=== PATIENT | female | born 1970 | race Caucasian/White ===

== ENCOUNTER 2018-08-11 09:03 | Emergency (ER) | payer MEDICAID ==
[2018-08-11 09:32] VITALS: BP 120/72
[2018-08-11] MEDS ORDERED: Iohexol 300* (CONTRAST) 10 ML SDV IV ONE (10:13)
--- NOTE | 2018-08-11 11:38 | UC ---
Neck Pain HPI - HPI Summary HPI Summary: 1. mass right side of the neck x 6 months pt. noted the mass on her neck 6 months ago, has been getting bigger since, no pain , denies any other symptoms, no n/v/d/c, denies any sore throat, no dysphasia , no heat or cold intolerance no weight gain or loss, no fever, chill or weakness, denies any hair loss no chest pain , no palpitation 2. rash right side of neck: the rash is flat , red and itchy , no new soap / detergent , food or drinks - History of Current Complaint Chief Complaint: UCRash Stated Complaint: SKIN CONCERN Time Seen by Provider: 08/11/18 09:36 Hx Obtained From: Patient Hx Last Menstrual Period: 07/11/18 ?: No Onset/Duration Of Injury/Symptoms: Weeks - 24 Mechanism Of Injury: No Known Trauma Timing: Constant Onset/Duration: Gradual Onset, Lasting Weeks - 24 Severity: Moderate Pain Intensity: 0 Pain Scale Used: 0-10 Numeric Location: Discrete At: - right side of neck Aggravating Factors: Nothing Alleviating Factors: Nothing Associated Signs & Symptoms: Positive: Swelling - lump right side of neck - Risk Factors Meningitis Risk Factors: Negative - Allergies/Home Medications Allergies/Adverse Reactions: Allergies Allergy/AdvReac Type Severity Reaction Status Date / Time peppermint Allergy Severe Anaphylatic Verified 08/11/18 09:22 Shock Home Medications: Home Medications L.acidoph,Paracasei, B.lactis [Probiotic] 1 each PO DAILY 08/11/18 [History Confirmed 08/11/18] Lansoprazole 15 mg PO DAILY 08/11/18 [History Confirmed 08/11/18] PMH/Surg Hx/FS Hx/Imm Hx Previously Healthy: Yes - Surgical History Surgical History: Yes Surgery Procedure, Year, and Place: TUBAL LIGATION - Family History Known Family History: Negative: Hypertension, Diabetes - Social History Alcohol Use: Occasionally Substance Use Type: None Smoking Status (MU): Never Smoked Tobacco Review Of Systems Constitutional: Positive: Negative Skin: Positive: Negative Eyes: Positive: Negative ENT: Positive: Negative Respiratory: Positive: Negative Cardiovascular: Positive: Negative Gastrointestinal: Positive: Negative Musculoskeletal: Positive: Negative All Other Systems Reviewed And Are Negative: No Physical Exam Triage Information Reviewed: Yes Appearance: Well-Appearing, No Pain Distress, Well-Nourished Vital Signs: Initial Vital Signs Temp 98.3 F 08/11/18 09:24 Pulse 76 08/11/18 09:24 Resp 18 08/11/18 09:24 BP 120/72 08/11/18 09:24 Pulse Ox 99 08/11/18 09:24 Vital Signs Reviewed: Yes Eye Exam: Normal Eyes: Positive: Conjunctiva Clear ENT: Positive: Normal ENT inspection, Hearing grossly normal, Pharynx normal, TMs normal. Negative: TM bulging, TM dull, TM red Neck: Positive: Supple, Nontender, Other: - + nodular mass right side of the neck / right thyroid , the mass if hard oval 4 x 3 cm non-tender , not movable Respiratory Exam: Normal Respiratory: Positive: Chest non-tender, Lungs clear, Normal breath sounds Cardiovascular: Positive: RRR, No Murmur, Pulses Normal Abdominal Exam: Normal Abdomen Description: Positive: Nontender, Soft. Negative: Guarding Bowel Sounds: Negative: Present, Absent Skin: Positive: Rashes - macular rash right side of neck Diagnostics - Laboratory Diagnostic Studies Completed/Ordered: ct soft tissue neck with contrast : IMPRESSION: 1. 3 CM NODULE OF THE RIGHT THYROID. RECOMMEND CONSIDERATION OF DEDICATED ULTRASOUND. IMAGING OF THE THYROID IN THE NONACUTE SETTING OR CONSIDERATION OF TISSUE SAMPLING. 2. THERE IS NO LYMPHADENOPATHY BY SIZE CRITERIA. 3. A PROBABLY BENIGN REPORT SHOULD NOT PRECLUDE OR DELAY THE EVALUATION OF A CLINICALLY. SUSPICIOUS PALPABLE ABNORMALITY Neck Pain Course/Dx - Differential Dx/Diagnosis Provider Diagnosis: Thyroid nodule, Eczema Discharge - Sign-Out/Discharge Documenting (check all that apply): Patient Departure All imaging exams completed and their final reports reviewed: Yes - Discharge Plan Condition: Stable Disposition: HOME Prescriptions: Triamcinolone 0.1% CREAM (NF) [Kenalog 0.1% Cream (NF)] 1 applic .SEE ORDER BID #60 gm Patient Education Materials: Eczema (ED), Thyroid Nodules (ED) Referrals: Brooks Strange MD [Medical Doctor] - No Primary Care Phys,NOPCP [Primary Care Provider] - Additional Instructions: soft tissue neck CT with contrast : IMPRESSION: 1. 3 CM NODULE OF THE RIGHT THYROID. RECOMMEND CONSIDERATION OF DEDICATED ULTRASOUND IMAGING OF THE THYROID IN THE NONACUTE SETTING OR CONSIDERATION OF TISSUE SAMPLING. 2. THERE IS NO LYMPHADENOPATHY BY SIZE CRITERIA. 3. A PROBABLY BENIGN REPORT SHOULD NOT PRECLUDE OR DELAY THE EVALUATION OF A CLINICALLY SUSPICIOUS PALPABLE ABNORMALITY please follow up with Endocrinology cheryl for evaluation and tx, may need an Thyroid US / biopsy of the thyroid nodule - Billing Disposition and Condition Condition: STABLE Disposition: Home
== END 2018-08-11 11:06 | disposition home or self-care (01) ==
LOC: UCCORT 09:03
DX: E04.1 Nontoxic single thyroid nodule (principal); L30.9 Dermatitis, unspecified
CPT/HCPCS: 70491; 99202; G0463; Q9967

== ENCOUNTER 2018-09-23 08:12 | Emergency (ER) | payer OTHER ==
[2018-09-23 08:42] VITALS: BP 132/69
--- NOTE | 2018-09-23 09:58 | UC ---
Knee Pain HPI - HPI Summary HPI Summary: 47-year-old woman comes in with chief complaint of right knee pain. 2 days ago she slipped on the ice and twisted her right knee. She had pain right away. She has been able to weight-bear. Weightbearing does give some pain but twisting the knee or flexing the knee gives her much more pain. She does have some swelling just distal to the knee in the anterior aspect. Denies any hip or ankle pain. Not hearing any clicking not feeling like it wants to give out on her. When she woke up this morning the knee pain was worse she feels like she had twisted the knee during the night. - History of Current Complaint Chief Complaint: UCLowerExtremity Stated Complaint: FALL,RIGHT KNEE CONCERN Time Seen by Provider: 09/23/18 09:14 Hx Last Menstrual Period: 09/15/18 Pain Intensity: 8 - Allergies/Home Medications Allergies/Adverse Reactions: Allergies Allergy/AdvReac Type Severity Reaction Status Date / Time peppermint Allergy Severe Anaphylatic Verified 09/23/18 08:36 Shock PMH/Surg Hx/FS Hx/Imm Hx Previously Healthy: Yes GI/ History: Gastroesophageal Reflux - Surgical History Surgical History: Yes Surgery Procedure, Year, and Place: TUBAL LIGATION - Family History Known Family History: Negative: Hypertension, Diabetes - Social History Alcohol Use: Occasionally Substance Use Type: None Smoking Status (MU): Never Smoked Tobacco Review of Systems All Other Systems Reviewed And Are Negative: Yes Constitutional: Positive: Negative Skin: Positive: Negative Eyes: Positive: Negative ENT: Positive: Negative Respiratory: Positive: Negative Cardiovascular: Positive: Negative Gastrointestinal: Positive: Negative Motor: Positive: Negative Neurovascular: Positive: Negative Musculoskeletal: Positive: Other: - The right knee has some swelling. Just distal to the knee in the anterior aspect there is also soft tissue swelling that's tender to palpation. That is the patient's primary area of pain. The kneecap itself is nontender to palpation she is not tender on the lateral and medial aspects on the posterior aspect of the knee. There is pain with any range of motion of the knee. He was stable to examination. Krystin's elicited pain as stated any sort of movement of the knee. Neurological: Positive: Negative Psychological: Positive: Negative Is Patient Immunocompromised?: No Physical Exam Triage Information Reviewed: Yes Appearance: Well-Appearing, Well-Nourished, Pain Distress - mild with palpation/ rom of rt knee Vital Signs: Initial Vital Signs Temp 97.6 F 09/23/18 08:37 Pulse 69 09/23/18 08:37 Resp 17 09/23/18 08:37 BP 132/69 09/23/18 08:37 Pulse Ox 100 09/23/18 08:37 Vital Signs Reviewed: Yes Eye Exam: Normal Eyes: Positive: Conjunctiva Clear Neck exam: Normal Neck: Positive: Supple Respiratory: Positive: No respiratory distress Musculoskeletal: Positive: Other: - The right knee has some swelling. Just distal to the knee in the anterior aspect there is also soft tissue swelling that's tender to palpation. That is the patient's primary area of pain. The kneecap itself is nontender to palpation she is not tender on the lateral and medial aspects on the posterior aspect of the knee. There is pain with any range of motion of the knee. He was stable to examination. Krystin's elicited pain as stated any sort of movement of the knee. Neurological Exam: Normal Neurological: Positive: Alert, Muscle Tone Normal Psychological Exam: Normal Psychological: Positive: Age Appropriate Behavior Skin Exam: Normal Knee Pain Course/Dx - Course Course Of Treatment: Order Information: KNEE RIGHT 4+ VWS. Accession Number: [id number]. CPT: 75684. INDICATION: Right knee injury. TECHNIQUE: 4 views of the right knee were obtained. FINDINGS: The bones are in normal alignment. No joint effusion or fracture is seen. Joint spaces appear maintained. IMPRESSION: NO EVIDENCE FOR FRACTURE. . <Electronically signed by Yohannes Rivera MD in OV> [id number]. I discussed the x-rays with the patient. No fracture seen. The plan is an Benigno wrap and the patient declined crutches. She plans to use a cane she has at home. They do ice elevation anti-inflammatories and then follow up with orthopedics if not completely improved. - Differential Dx/Diagnosis Provider Diagnosis: Right knee pain Discharge - Sign-Out/Discharge Documenting (check all that apply): Patient Departure All imaging exams completed and their final reports reviewed: Yes - Discharge Plan Condition: Stable Disposition: HOME Prescriptions: traMADol TAB* [Ultram*] 50 mg PO Q6HR PRN #20 tab MDD 4 PRN Reason: Pain Patient Education Materials: Swollen Knee Joint (ED), Knee Pain (ED) Forms: *Work Release Referrals: Brooke Ravi PA [Primary Care Provider] - Lenin Hair MD [Medical Doctor] - Additional Instructions: FOLLOW UP WITH ORTHOPEDICS, DR HAIR, IF NOT COMPLETELY IMPROVED. GET RECHECKED SOONER WITH ANY WORSENING OF YOUR CONDITION OR QUESTIONS OR CONCERNS. - Billing Disposition and Condition Condition: STABLE Disposition: Home
== END 2018-09-23 10:15 | disposition home or self-care (01) ==
LOC: UCCORT 08:12
DX: M25.561 Pain in right knee (principal); Z91.018 Allergy to other foods; W01.0XXA Fall on same level from slipping, tripping and stumbling without subsequent striking against object, initial encounter; Y92.9 Unspecified place or not applicable
CPT/HCPCS: 99212; G0463

== ENCOUNTER 2018-11-22 08:37 | Emergency (ER) | payer OTHER ==
[2018-11-22 09:01] VITALS: BP 122/79
--- NOTE | 2018-11-22 10:09 | UC ---
Lower Extremity/Ankle HPI - HPI Summary HPI Summary: pain left 5th toe x 1 day + injury , stubbed her left 5th toe this morning + pain and swelling , small abrasion - History of Current Complaint Chief Complaint: UCLowerExtremity Stated Complaint: S/P FALL-LEFT PINKY TOE INJURY Time Seen by Provider: 11/22/18 08:54 Hx Obtained From: Patient Hx Last Menstrual Period: 11/07/18 ?: No Onset/Duration: Sudden Onset, Lasting Days - 1 Severity Initially: Moderate Severity Currently: Moderate Pain Intensity: 3 Pain Scale Used: 0-10 Numeric Aggravating Factor(s): Standing, Ambulation Alleviating Factor(s): Rest, Elevation Able to Bear Weight: Yes - Allergies/Home Medications Allergies/Adverse Reactions: Allergies Allergy/AdvReac Type Severity Reaction Status Date / Time peppermint Allergy Severe Anaphylatic Verified 11/22/18 08:53 Shock PMH/Surg Hx/FS Hx/Imm Hx Endocrine History: Thyroid Disease GI/ History: Gastroesophageal Reflux - Surgical History Surgical History: Yes Surgery Procedure, Year, and Place: TUBAL LIGATION - Family History Known Family History: Negative: Hypertension, Diabetes - Social History Alcohol Use: Occasionally Substance Use Type: None Smoking Status (MU): Never Smoked Tobacco - Immunization History Most Recent Tetanus Shot: 2017 Review of Systems All Other Systems Reviewed And Are Negative: Yes Constitutional: Positive: Negative Skin: Positive: Negative Eyes: Positive: Negative ENT: Positive: Negative Respiratory: Positive: Negative Is Patient Immunocompromised?: No Physical Exam Triage Information Reviewed: Yes Appearance: Well-Appearing, No Pain Distress, Well-Nourished Vital Signs: Initial Vital Signs Temp 98.4 F 11/22/18 08:54 Pulse 79 11/22/18 08:54 Resp 16 11/22/18 08:54 BP 122/79 11/22/18 08:54 Pulse Ox 100 11/22/18 08:54 Vital Signs Reviewed: Yes Eye Exam: Normal Eyes: Positive: Conjunctiva Clear ENT: Positive: Normal ENT inspection, Hearing grossly normal, Pharynx normal Neck: Positive: Supple, Nontender, No Lymphadenopathy Respiratory: Positive: Chest non-tender, Lungs clear, Normal breath sounds Cardiovascular: Positive: RRR, No Murmur, Pulses Normal Musculoskeletal: Positive: Other: - left 5th toe : minor abrasion, mild swelling , + tenderness Diagnostics - Radiology No standard instances Radiology Interpretation Completed By: Radiologist Summary of Radiographic Findings: left foot : IMPRESSION: No fracture of the left foot is noted. Lower Extremity Course/Dx - Differential Dx/Diagnosis Provider Diagnosis: Contusion of foot, left Discharge - Sign-Out/Discharge Documenting (check all that apply): Patient Departure All imaging exams completed and their final reports reviewed: Yes - Discharge Plan Condition: Stable Disposition: HOME Patient Education Materials: Foot Contusion (ED) Referrals: Brooke Ravi PA [Primary Care Provider] - If Needed Additional Instructions: xray negative for fracture rest , ice , ibuprofen as needed for pain follow up as needed - Billing Disposition and Condition Condition: STABLE Disposition: Home
== END 2018-11-22 10:03 | disposition home or self-care (01) ==
LOC: UCCORT 08:37
DX: S90.122A Contusion of left lesser toe(s) without damage to nail, initial encounter (principal); W18.30XA Fall on same level, unspecified, initial encounter; E07.9 Disorder of thyroid, unspecified; K21.9 Gastro-esophageal reflux disease without esophagitis; Z91.018 Allergy to other foods
CPT/HCPCS: 99211; G0463

== ENCOUNTER 2019-01-23 10:29 | Emergency (ER) | payer OTHER ==
[2019-01-23 10:46] VITALS: BP 130/76
--- NOTE | 2019-01-23 11:24 | UC ---
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 next day had lower back pain, increased since this time. difficulty sleeping due to pain, no loss of bowel/ bladder function, denies numbness, tingling. Taking ASA no benefit. intermittent shooting pain down right leg, short lived. - History of Current Complaint Chief Complaint: UCBackPain Stated Complaint: BACK INJURY Time Seen by Provider: 01/23/19 10:58 Hx Obtained From: Patient Hx Last Menstrual Period: right now ?: No Onset/Duration: Sudden Onset, Lasting Days Timing: Constant - pain, Intermittent - shooting pains Severity Initially: Severe Severity Currently: Severe Pain Intensity: 15 Pain Scale Used: 0-10 Numeric Character: Sharp, Aching Aggravating Factor(s): Movement Associated Signs And Symptoms: Positive: Negative - Allergies/Home Medications Allergies/Adverse Reactions: Allergies Allergy/AdvReac Type Severity Reaction Status Date / Time peppermint Allergy Severe Anaphylatic Verified 11/22/18 08:53 Shock PMH/Surg Hx/FS Hx/Imm Hx Previously Healthy: Yes - Surgical History Surgical History: Yes Surgery Procedure, Year, and Place: TUBAL LIGATION - Family History Known Family History: Negative: Hypertension, Diabetes - Social History Alcohol Use: Occasionally Substance Use Type: None Smoking Status (MU): Never Smoked Tobacco - Immunization History Most Recent Tetanus Shot: 2017 Review of Systems All Other Systems Reviewed And Are Negative: Yes Constitutional: Positive: Negative Musculoskeletal: Positive: Arthralgia, Decreased ROM, Myalgia. Negative: Edema Neurological: Positive: Negative Is Patient Immunocompromised?: No Physical Exam Triage Information Reviewed: Yes Appearance: Well-Appearing, No Pain Distress, Well-Nourished Vital Signs: Initial Vital Signs Temp 97.5 F 01/23/19 10:37 Pulse 73 01/23/19 10:37 Resp 18 01/23/19 10:37 BP 130/76 01/23/19 10:37 Pulse Ox 100 01/23/19 10:37 Vital Signs Reviewed: Yes Eyes: Positive: Conjunctiva Clear Musculoskeletal: Positive: Strength Intact - pain with hip abd b/l, R> L, ROM Intact, No Edema, Other: - TTP over SI join b/l, R>L, paraspinal tenderness, increasing laterally. Neurological Exam: Normal Neurological: Positive: Other: - patellar reflex 2+ b/l, full strength, senstaion intact distal to b/l hips Skin Exam: Normal Back Pain Course/Dx - Course Course Of Treatment: no radiograph due to s/s and no trauma, steroids to decrease inflammation, valium for muscle spasms at night, follow up wtih PCP if no improvmenet work note x 2 days - Differential Dx/Diagnosis Provider Diagnosis: Low back sprain Discharge - Sign-Out/Discharge Documenting (check all that apply): Patient Departure All imaging exams completed and their final reports reviewed: No Studies - Discharge Plan Condition: Fair Disposition: HOME Prescriptions: Diazepam TAB(*) [Valium TAB(*)] 5 mg PO BEDTIME PRN #2 tab MDD 1 PRN Reason: muscle spasms predniSONE TAB* [Deltasone 10 MG TAB*] 10 mg PO SEE INSTRUCTIONS #17 tab Patient Education Materials: Low Back Strain (ED), Lower Back Exercises (ED), Core Strengthening Exercises (ED) Forms: *Work Release Referrals: No Primary Care Phys,NOPCP [Primary Care Provider] - Additional Instructions: - Prednisone as directed. May stop if side effects are too great - Stop Aspirin while taking Prednisone - Valium as needed at night for muscle spasms - GO to ER with loss of bowel, bladder, function - Return with numbness that does not resolve - Billing Disposition and Condition Condition: FAIR Disposition: Home - Attestation Statements Provider Attestation: I was available for consult. This patient was seen by the JACOBO. The patient was not presented to, seen by, or examined by me. -Juany
== END 2019-01-23 11:31 | disposition home or self-care (01) ==
LOC: UCCORT 10:29
DX: S33.5XXA Sprain of ligaments of lumbar spine, initial encounter (principal); X50.9XXA Other and unspecified overexertion or strenuous movements or postures, initial encounter
CPT/HCPCS: 81003; 87086; 99212; G0463

== ENCOUNTER → 2019-04-27 | Day surgery (SDC) | payer OTHER ==
[~2019-04-27] MED LIST: Buffered Lidocaine 1% SYRIN* 1 ML/SYRINGE INTRADERM ONE; Bupivacaine 0.25% SDV PF* 10 ML VIAL INJ ONE; Dexamethasone IV* 4 MG/ML 1 ML (4 MG) IV SLOW PU ONE; Dexamethasone IV* 4 MG/ML 1 ML (4 MG) ONE; DiMENhydriNATE IV* 50 MG/ML VIAL IV PUSH PRN; DiMENhydriNATE IV* 50 MG/ML VIAL ONE; Famotidine IV* 10 MG/ML 2 ML (20 mg) IV ONE; Famotidine IV* 10 MG/ML 2 ML (20 mg) ONE; HYDROmorphone INJ1* 1 MG/ML SYRINGE IV PRN; Lactated Ringers 1000 ML Bag* 1,000 ML IV SCH; Lidocaine 1% INJ* 10 MG/ML 30 ML SDV ONE; Lidocaine 2% PF * 5 ML VIAL ONE; Midazolam* 1 MG/ML 5 ML VIAL (5 MG) ONE; Naloxone* 0.4 MG/ML 1 ML VIAL IV PRN; Ondansetron INJ* 2 MG/ML VIAL IV PRN; Ondansetron INJ* 2 MG/ML VIAL ONE; Propofol* 10 MG/ML 20 ML BTL ONE; Scopolamine 1.5 mg* PATCH ONE; Succinylcholine* 20 MG/ML 10 ML VIAL ONE; fentaNYL* 50 MCG/ML 2 ML VIAL (100 MCG VIAL) IV PRN; fentaNYL* 50 MCG/ML 2 ML VIAL (100 MCG VIAL) ONE; fentaNYL* 50 MCG/ML 5 ML VIAL (250 MCG VIAL) ONE; oxyCODONE ORAL.SOLN* 5 MG/5 ML UDC ONE
--- NOTE | 2019-04-27 09:51 | OP ---
Operative Report - Blank - Operative Report Date of Operation: 04/27/19 Note: Brief Operative Note Preop Dx: Right thyroid nodule Postop Dx: same Procedure: Right thryoid lobectomy; Right lower pole parathyroid autotransplantation Anesthesia: GET Surgeon: [facility] Aide: VASU Mcintyre Fluids: 900 ml RL EBL: < 50 ml Specimen: Right thyroid lobe Drains: none Findings: as above Complications: none
--- NOTE | 2019-04-27 11:45 | OP ---
CC: Dilcia Trejo NP; Dr. Ozzie Mckeon OPERATIVE REPORT: DATE OF OPERATION: 04/27/19 DATE OF : 74 SERVICE: General Surgery. ATTENDING SURGEON: Annie Bartholomew MD. PRACTICAL NURSE: VASU Nova. ANESTHESIOLOGIST: Riccardo Dawson MD. ANESTHESIA: General endotracheal anesthesia. PREP-OP DIAGNOSIS: Large right thyroid nodule. POST-OP DIAGNOSIS: Large right thyroid nodule. OPERATIVE PROCEDURE: Right thyroid lobectomy and right lower parathyroid autotransplantation. ESTIMATED BLOOD LOSS: Minimal, less than 10 cc. SPECIMEN: Right thyroid lobe. INDICATION FOR SURGERY: Ms. Malone is a very pleasant 48-year-old female with a history of a large right thyroid nodule, who has developed obstructive symptoms and dysphagia and therefore wished to have a right thyroid lobectomy. She understood the risks of the surgery which included, but were not limited to, bleeding, infection, injury to nearby structures including the recurrent laryngeal nerve, and potential perioperative complications. She understood these things and wished to proceed. DESCRIPTION OF PROCEDURE: The patient was brought back to the operating room and placed on the operating table in the supine position. Sequential compression devices were placed in the bilateral lower extremities for DVT prophylaxis. No antibiotics were administered. General endotracheal anesthesia was induced. The electrodes for the nerve monitor were attached. A timeout performed prior to administering local anesthesia to the neck. 0.25% Marcaine plus 1% lidocaine mix was infiltrated into the subcutaneous tissue of the anterior neck. After this was done, the neck was prepped and draped in normal sterile fashion, and a second timeout was performed verifying the patient 's name, MR number, and the procedure to be performed, which was a right thyroid lobectomy. A 4 cm incision was made in a natural crease line in the anterior neck approximately 3 fingerbreadths above the sternal notch. The skin was divided down through the subcutaneous tissue. The platysma was divided, and the inferior and superior subplatysmal flaps were developed. After this was done, the median raphe between the strap muscles was identified and divided. The strap muscles were retracted off the isthmus laterally and the isthmus was divided at the midline. After this was done, attention was turned towards the right lobe and the medial attachments of the right thyroid lobe were divided off of the trachea. The isthmus was rather large and the right thyroid lobe was also very enlarged from the thyroid nodule. Once the medial attachments were divided, the space of Vasquez between the cricothyroid muscle and the upper pole vessels was identified and the strap muscles overlying this were divided. Next attention was turned towards developing the space lateral to the thyroid lobe. The strap muscles were retracted off of the right thyroid lobe. The lateral space was developed bluntly and some areolar attachments to the right thyroid lobe were also divided. Next, the superior pole vessels were then divided using a combination of 2-0 silk ties and LigaSure. Once this was done, with great difficulty, the right thyroid lobe was able to be delivered medially and anteriorly out of the neck. There was very little space to do this given how large the thyroid lobe was, but once this was done, the recurrent laryngeal nerve was identified both visually and with the assistance of the nerve monitor. The entire course was traced out inferiorly and superiorly towards the insertion of the cricothyroid muscle. Once this was done, with great care, the thyroid lobe was then divided off of the trachea using the LigaSure. The right upper parathyroid was identified and preserved on its pedicle. The right lower parathyroid was very anteriorly located on the enlarged thyroid lobe and could not be saved on the pedicle; therefore, it was removed and saved for autotransplantation later. The right thyroid lobe was then taken off and carefully examined on the back table. Again, no parathyroids were identified on the gland itself except for the right lower that was removed. A stitch was used to kimberly its upper pole and was taken off the table as specimen. Next, attention was turned towards the right lateral neck space. Hemostasis was obtained. Tisseel was placed in the lateral neck. The strap muscles were reapproximated using interrupted 4-0 Vicryl sutures. The right lower parathyroid gland was slightly macerated and placed into a intramuscular pocket in the strap muscle, which was closed with interrupted Vicryl suture. Next, the platysma was reapproximated using interrupted 4-0 Vicryl sutures and the skin was closed using a running 5-0 Prolene suture. Sterile dressings were then placed. The patient's anesthesia was reversed, and she was taken to PACU in stable condition. At the end of the case, debriefing was performed. All counts were correct at the end of the case, and I was present during the entirety of the case. [id number]/[facility] #: [id number] RAVIN
[2019-04-27] MEDS: oxyCODONE ORAL.SOLN* 5 MG/5 ML UDC PO PRN ×2 (14:15→14:20)
[2019-04-27 16:11] VITALS: BP 130/85
== END | disposition home or self-care (01) ==
LOC: OR 05:37
PROVIDERS: ATTEND Surgery
DX: E04.1 Nontoxic single thyroid nodule (principal); E06.3 Autoimmune thyroiditis; K21.9 Gastro-esophageal reflux disease without esophagitis; R13.10 Dysphagia, unspecified; R49.0 Dysphonia; E66.9 Obesity, unspecified
CPT/HCPCS: 88307; A9270-GY; C1776; J0330; J1100; J1240; J2250; J2405; J2704; J3010; J3490

== ENCOUNTER 2019-06-06 08:42 | Emergency (ER) | payer OTHER ==
--- OUTSIDE RECORDS SUMMARY | 2019-06-06 08:55 | XMS REPORT | Continuity of Care Document ---
:1970 External Reference #:[id number] Author Name Annie Bartholomew MD (transmitted by agent of provider Flora Monreal) Address [address], [place] [address] Care Team Providers Name Role Phone Dilcia Trejo F.N.P. 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 Problems Description No Information Available Social History Type Date Description Comments Sex Unknown ETOH Use Consumes 2 glasses of wine per day Tobacco Use Start: Unknown Patient has never smoked Smoking Status Reviewed: 05/03/19 Patient has never smoked Exercise Type/Frequency Does not exercise Allergies, Adverse Reactions, Alerts Description No Known Drug Allergies Medications Active Medications SIG Qnty Indications Ordering Date Provider Kim Bartholomew MD 04/05/2019 Capsules Cyclobenzaprine HCL take 1 tab by 30tabs Annie Bartholomew MD 03/30/2019 10mg mouth 2-3 times Tablets a day as needed Meloxicam take one tab Unknown 7.5mg Tablets twice daily as needed for pain, avoid other nsaids Omeprazole 1 by mouth Unknown 20mg Capsules DR every day Lansoprazole 1 by mouth Unknown 15mg Capsules DR every day GNP Evening [place] Oil Unknown 500mg Capsules Immunizations Description No Information Available Vital Signs Date Vital Result Comment 05/03/2019 9:55am Heart Rate 72 /min BP Systolic Sitting 124 mmHg BP Diastolic Sitting 80 mmHg Respiratory Rate 12 /min Body Temperature 98.5 F 04/05/2019 9:29am Height 65 inches 5'5" Weight 235.00 lb Heart Rate 76 /min BP Systolic 116 mmHg BP Diastolic 74 mmHg Respiratory Rate 16 /min Body Temperature 97.4 F BMI (Body Mass Index) 39.1 kg/m2 Results Test Date Facility Test Result H/L Range Note Laboratory test 04/27/2019 [facility] Surgical SEE RESULT [address] [place] [address] [phone] Laboratory test 04/26/2019 [facility] Tisseel 4ML SEE RESULTS 2, [address] [place] <[place] [address] NOTE> [phone] 1 SEE RESULT BELOW Name: CAMILOLINDA : [address]: Annie Bartholomew MD Acct: [id number] Unit: [id number] AGE: 48 Location: OR Re04/27/19 SEX: F [place] [facility] [place]: [id number] JOSEE: 04/27/19- [facility] DR: Annie Bartholomew MD REQ: [id number] RECD: 04/27/19 STATUS: SOUT _ ORDERED: LEVEL 5 FINAL DIAGNOSIS Thyroid, right lobe, hemithyroidectomy: -- Follicular nodular hyperplasia. -- Chronic lymphocytic thyroiditis. -- No evidence of neoplasia. PRE-OPERATIVE DIAGNOSIS Right lobe thyroid nodule 3cm, stich lee upper pole GROSS DESCRIPTION The specimen is received in formalin labeled, Right Thyroid Lobe, Stitch Lee Upper Pole, and consists of a 24 g, 4.9 x 3.8 x 3.2 cm thyroid lobe with an attached 2.2 x 1.0 x 1.0 cm portion of isthmus. There is an attached suture which designates the upper pole. The capsule is smooth to shaggy hernandez-red with mild focal cauterization and rare adhesions. There is a 3.1 x 3.0 x 2.7 cm soft hernandez-pink encapsulated focally cystic mass which abuts the inked margin. The remaining cut surface is mottled hernandez-pink and slightly lobulated. Normal thyroid parenchyma is not identified. Received separately in the same container is a 1.9 by up to 0.7 x 0.3 cm hernandez-pink rubbery soft tissue fragment. The specimen is inked, serially sectioned and pharmaceutical representative sections are submitted in cassettes A through K to include separately received tissue in cassette K. Signed by and Reported on: Anabel Molina MD 04/28/19 1500 END OF REPORT DEPARTMENT OF PATHOLOGY, [address] [place] [address] Ad Romero M.D. Director [facility] # [id number] 2 NONTOXIC SINGLE THYROID NODULE 3 SEE RESULTS BELOW [id number] TISSEEL TRANSFUSED 04/27/19 0709 Procedures Date Code Description Status 04/27/2019 15355 Parathyroid Autotransplantation Completed 04/27/2019 62408 Thyroid Lobectomy, Unilateral Completed Medical Devices Description No Information Available Encounters Type Date Location Provider Dx Diagnosis Office Visit [facility] Annie Bartholomew MD E04.1 Nontoxic single 9:30a Of [employer] thyroid nodule Assessments Date Code Description Provider 05/03/2019 E04.1 Nontoxic single thyroid nodule Annie Bartholomew MD 04/27/2019 E04.1 Nontoxic single thyroid nodule Annie Bartholomew MD 04/05/2019 E04.1 Nontoxic single thyroid nodule Annie Bartholomew MD Plan of Treatment 05/03/2019 - Annie Bartholomew MDE04.1 Nontoxic single thyroid noduleFollow up:Please feel free to return and see me as needed. Functional Status Description No Information Available Mental Status Description No Information Available Referrals Description No Information Available
[2019-06-06 09:07] VITALS: BP 125/90
--- NOTE | 2019-06-06 09:41 | UC ---
Respiratory Complaint HPI - HPI Summary HPI Summary: cough x 1 week cough is non-productive, harsh , + nasal congestion , pnd, sore throat, no fever, no chills - History of Current Complaint Chief Complaint: UCGeneralIllness Stated Complaint: CHEST CONGESTION Time Seen by Provider: 06/06/19 09:28 Hx Obtained From: Patient Hx Last Menstrual Period: current Onset/Duration: Gradual Onset, Lasting Weeks - 1, Still Present Timing: Constant Severity Initially: Moderate Severity Currently: Moderate Pain Intensity: 8 Character: Cough: Nonproductive Aggravating Factors: Exertion, Deep Breaths Associated Signs And Symptoms: Positive: URI, Nasal Congestion. Negative: Fever , Chills, Wheezing - Allergies/Home Medications Allergies/Adverse Reactions: Allergies Allergy/AdvReac Type Severity Reaction Status Date / Time peppermint Allergy Severe Anaphylatic Verified 06/06/19 09:02 Shock PMH/Surg Hx/FS Hx/Imm Hx Previously Healthy: Yes - Surgical History Surgical History: Yes Surgery Procedure, Year, and Place: TUBAL LIGATION. partial thyroidectomy - Family History Known Family History: Negative: Hypertension, Diabetes - Social History Alcohol Use: Occasionally Substance Use Type: None Smoking Status (MU): Never Smoked Tobacco Have You Smoked in the Last Year: No - Immunization History Most Recent Tetanus Shot: 2017 Review of Systems All Other Systems Reviewed And Are Negative: Yes Constitutional: Positive: Negative Skin: Positive: Negative Eyes: Positive: Negative ENT: Positive: Sore Throat, Nasal Discharge, Sinus Congestion, Sinus Pain/ Tenderness Respiratory: Positive: Cough Cardiovascular: Positive: Negative Is Patient Immunocompromised?: No Physical Exam Triage Information Reviewed: Yes Appearance: Well-Appearing, No Pain Distress, Well-Nourished Vital Signs: Initial Vital Signs Temp 98.2 F 06/06/19 09:03 Pulse 82 06/06/19 09:03 Resp 17 06/06/19 09:03 BP 125/90 06/06/19 09:03 Pulse Ox 100 06/06/19 09:03 Vital Signs Reviewed: Yes Eye Exam: Normal Eyes: Positive: Conjunctiva Clear ENT: Positive: Normal ENT inspection, Hearing grossly normal, Pharynx normal, Nasal congestion, Nasal drainage, TMs normal. Negative: Tonsillar swelling, Tonsillar exudate Neck: Positive: Supple, Nontender, No Lymphadenopathy Respiratory: Positive: Chest non-tender, Lungs clear, Normal breath sounds Cardiovascular: Positive: RRR, No Murmur, Pulses Normal Skin Exam: Normal Respiratory Course/Dx - Differential Dx/Diagnosis Provider Diagnosis: URI (upper respiratory infection) Discharge ED - Sign-Out/Discharge Documenting (check all that apply): Patient Departure All imaging exams completed and their final reports reviewed: No Studies - Discharge Plan Condition: Stable Disposition: HOME Patient Education Materials: Upper Respiratory Infection (ED) Forms: *Work Release Referrals: Dilcia Trejo NP [Primary Care Provider] - If Needed - Billing Disposition and Condition Condition: STABLE Disposition: Home
== END 2019-06-06 09:42 | disposition home or self-care (01) ==
LOC: UCCORT 08:42
DX: J06.9 Acute upper respiratory infection, unspecified (principal); Z91.018 Allergy to other foods
CPT/HCPCS: 99211; G0463